=== PATIENT | male | born 1980 | race Caucasian/White ===

== ENCOUNTER 2020-01-15 22:23 | Emergency (ER) | payer SELFPAY ==
[~2020-01-15] VITALS: Ht 172.7 cm; Wt 81.6 kg
[2020-01-15 22:26] VITALS: Ht 172.7 cm; Wt 81.6 kg
[2020-01-16 00:34] VITALS: BP 122/74
== END 2020-01-16 00:34 | disposition home or self-care (01) ==
LOC: ED 22:23
DX: R11.10 Vomiting, unspecified (principal); R19.7 Diarrhea, unspecified; M79.10 Myalgia, unspecified site; Z98.890 Other specified postprocedural states
CPT/HCPCS: 87804; J1885; Q0092; U0002